=== PATIENT | male | born 1965 | race Caucasian/White ===

== ENCOUNTER 2019-12-03 12:34 | Outpatient (CLI) | payer MEDICAID ==
[~2019-12-03 12:34] MED LIST: LORAZEPAM I2 MG/1 ML ORAL; VENTOLIN HFA18 GM INH
--- NOTE | 2019-12-03 13:30 | General Progress Note ---
Assessment/Plan Assessment/Plan: colonoscopy reviewed diverticulosis hemorrhoids plan repeat colonoscopy in 5 years Subjective ROS Limited/Unobtainable: No Allergies: Coded Allergies: No Known Allergies (Unverified , 10/07/19) Objective General Appearance: alert EENT: normal ENT inspection Neck: supple Cardiovascular: normal rate Respiratory/Chest: decreased breath sounds Abdomen: normal bowel sounds, non tender, soft Extremities: non-tender Phuc Harden MD Dec 03, 2019 13:30
== END 2019-12-03 16:01 | disposition home or self-care (01) ==
LOC: PAN 12:34
DX: K57.90 Diverticulosis of intestine, part unspecified, without perforation or abscess without bleeding (principal); K64.9 Unspecified hemorrhoids
CPT/HCPCS: 99212